=== PATIENT | female | born 1955 | race Caucasian/White ===

== ENCOUNTER → 2017-10-04 | Outpatient (CLI) | payer MEDICARE ==
--- NOTE | 2017-10-04 13:49 | Diagnostic Imaging Report ---
PROCEDURE: CT CHEST WITHOUT CONTRAST CT scan of the chest WITHOUT intravenous contrast, using standard protocol. TECHNIQUE: The chest was scanned utilizing a multidetector helical scanner from the apex to the level of the adrenal glands. No IV contrast was administered. Coronal and sagittal multiplanar reformations were obtained. COMPARISON: None. INDICATIONS: SMOKER FINDINGS: Lines/tubes: None. Lungs and Airways: There are multiple scattered lung nodules which measure up to 6 mm. For example: 3 mm nodule in the right upper lobe (series 3, image 33). 3 mm nodule right upper lobe (image 46 is present. 4 mm nodule in the right upper lobe (image 66). 6 mm nodule in the right lower lobe (image 72). 4 mm nodule right lower lobe (image 83). 4 mm right lower lobe nodule (image 91). 5 mm nodular opacity in the lingula (image 94) Right basilar atelectasis. Scarlike opacities in the lingula. No focal consolidation. Pleura: The pleural spaces are clear. Heart and mediastinum: The thyroid gland is normal. No significant mediastinal, hilar or axillary lymphadenopathy is seen. The heart size is normal. No pericardial effusion. Atherosclerotic calcifications of the coronary arteries and thoracic aorta. Soft tissues: Normal. Abdomen: Limited views of the upper abdomen. There has been a cholecystectomy. There is a 2.4 cm low attenuation right adrenal nodule (series 2, image 120) which is consistent with a benign adenoma. Bones: Multilevel degenerative changes of the thoracic spine. IMPRESSION: 1. Multiple pulmonary nodules which measure up to 6 mm and are indeterminate. Recommend followup CT in 6-12 months to ensure stability. 2. 2.4 cm benign right adrenal adenoma. Dictated by: Erick Alves M.D. on 10/04/2017 at 13:55 Electronically approved by: Erick Alves M.D. on 10/04/2017 at 13:55
== END ==
LOC: MAMMO 11:55
PROVIDERS: ATTEND Internal Medicine
DX: Z12.31 Encounter for screening mammogram for malignant neoplasm of breast (principal); Z12.2 Encounter for screening for malignant neoplasm of respiratory organs; F17.210 Nicotine dependence, cigarettes, uncomplicated
CPT/HCPCS: 71250; 77067

== ENCOUNTER → 2017-12-08 | Outpatient (CLI) | payer MEDICARE ==
[~2017-12-08] MED LIST: IOPAMIDOL 370 MG/ML 200 ML INFUS..BTL INJ ONE; SODIUM CHLORIDE 0.9% 100 ML 100 ML ONE; SODIUM CHLORIDE 0.9% 250ML 500 ML ONE
[2017-12-08 15:58] LABS: CREATININE, SERUM 1.15 mg/dL (0.57-1.11)
--- NOTE | 2017-12-08 17:34 | Diagnostic Imaging Report ---
History: Carotid stenosis Comparison studies:None Technique: Axial images were obtained from the thoracic inlet. Coronal and sagittal images reconstructed from the axial data. Dose modulation, iterative reconstruction, and/or weight based adjustment of the mA/kV was utilized to reduce the radiation dose to as low as reasonably achievable. Intravenous contrast: 100 cc of Omnipaque 300. Findings: Aortic arch and major vessels: Scattered non-stenosing calcifications in the aortic arch and at the origins of the left subclavian and brachiocephalic arteries. Common carotid arteries: Patent. No abnormalities. Internal carotid arteries: Calcified plaques bilaterally result in less than 30% stenosis. Internal carotid arteries: The cervical segments are patent. The distal segment on the right is focally tortuous before the artery enters the skull base. Moderate stenosis in the carotid siphons is due to coarse calcified plaques. Mildly stenosing calcified and noncalcified plaques are seen on the left. A1 and M1 segments: Minimally irregular but patent. Right vertebral artery: Tortuous, dominant and patent Left vertebral artery: Nonvisualized from its origin to the C4 level. It is small and irregular up to C3-4 but relatively patent from C3 to its junction with the basilar artery. Basilar artery: Patent. Posterior cerebral arteries: Patent bilaterally. Incidental findings: Focal reversal of the usual cervical spine lordosis is centered at C5. Degenerated discs, worse at C5-6 and C6-7. Diffuse inflammatory changes in the sphenoid sinuses and in multiple right mid and posterior ethmoid air cells. Peripheral mucosal thickening in the left sphenoid sinus. IMPRESSION: 1. 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 It is irregular at C3-4 but otherwise patent throughout its course. The nondominant right vertebral artery is patent. 2. Mild (less than 30%) stenosis of both carotid bulbs due to calcified plaques. Additional plaques in the carotid siphons result in moderate stenosis on the right but no significant stenosis on the left. 3. No additional significant vascular abnormalities. Signed by: Dr. David Browning M.D. on 12/08/2017 5:31 PM
== END ==
LOC: CT 15:03
PROVIDERS: ATTEND Internal Medicine Interventional Cardiology
DX: I65.29 Occlusion and stenosis of unspecified carotid artery (principal)
CPT/HCPCS: 36415; 70498; 82565; 84520; 96360; J7050; Q9967

== ENCOUNTER → 2018-02-22 | Outpatient (CLI) | payer MEDICARE ==
--- NOTE | 2018-02-22 17:10 | Diagnostic Imaging Report ---
EXAM: CT Chest without contrast DATE/TIME: 02/22/2018 2:00 PM INDICATION: Multiple lung nodules. COMPARISON: None TECHNIQUE: Chest was scanned utilizing a multidetector helical scanner from the lung apex through the level of the adrenal glands without administration of IV contrast. Coronal and sagittal reformations were obtained. Routine protocol was performed. Dose modulation, iterative reconstruction, and/or weight based adjustment of the mA/kV was utilized to reduce the radiation dose to as low as reasonably achievable. RADIATION DOSE: Total DLP: 179.5 mGy*cm COMPLICATIONS: None FINDINGS: LINES/ TUBES: None. LUNGS AND AIRWAYS: The central airways are patent. There are multiple bilateral lung nodules. The largest solid nodule in the right lower lobe measures 5 mm on series 3, image 57. Additional 4 mm solid nodule in the right lower lobe on image 76 and right upper lobe on image 52. Scattered other 2-3 mm solid nodules in both lungs. Mild patchy right lower lobe dependent subsegmental atelectasis. No evidence of consolidation or pulmonary edema. PLEURA: The pleural spaces are clear. HEART AND MEDIASTINUM: No mediastinal, hilar or axillary lymphadenopathy. No cardiomegaly or pericardial effusion. Moderate atherosclerotic calcifications of the thoracic aorta and branch vessels. UPPER ABDOMEN: Limited non-contrast views of the upper abdomen show no abnormality within the partially visualized liver, spleen, or kidneys. Status post cholecystectomy. Partially seen right adrenal nodule (4 HU), consistent with adrenal adenoma. BONES/SOFT TISSUES: No acute bony findings. Mild degenerative changes of the visualized spine. IMPRESSION: Bilateral solid pulmonary nodules which measure up to 4 mm. In a patient at low risk for malignancy, no further follow-up is recommended. If the patient has risk factor for malignancy, such as smoking, an optional follow-up chest CT in 12 months may be considered. Signed by: Dr. Kmei Rizo MD on 02/22/2018 5:07 PM
== END ==
LOC: CT 14:28
PROVIDERS: ATTEND Internal Medicine Pulmonary Disease
DX: R91.8 Other nonspecific abnormal finding of lung field (principal)
CPT/HCPCS: 71250

== ENCOUNTER 2018-04-23 16:34 | Emergency (ER) | payer MEDICARE ==
[~2018-04-23] VITALS: Ht 152.4 cm; Wt 76.7 kg
--- OUTSIDE RECORDS SUMMARY | 2018-04-23 16:37 | XMS REPORT ---
Author Author [facility] Address Unknown Phone Unavailable Care Team Providers Care Dispatch Officer Name Role Phone DAVID ZHOU Unavailable Unavailable HENNA CUENCA Unavailable Unavailable CARLONAZ LEVI Unavailable Unavailable Problems This patient has no known problems. Allergies, Adverse Reactions, Alerts This patient has no known allergies or adverse reactions. Medications This patient has no known medications. Results Test Description Test Time Test Comments Text Results Atomic Results Result Comments CT CHEST WO 2018-02-22 16:53:00 [place] [address] Patient Name: DAY RAY MR #: [id number] : 1955 Age/Sex: 62/F Req #: [id number] Adm Physician: Ordered by: DAVID ZHOU MD Report #: [id number] Location: CT Room/Bed: Procedure: [id number] CT/CT CHEST WO Exam Date: 02/22/18 Exam Time: 1500 REPORT STATUS: Signed EXAM: CT Chest without contrast DATE/TIME: 02/22/2018 2:00 PM INDICATION: Multiple lung nodules. COMPARISON: None TECHNIQUE: Chest was scanned utilizing a multidetector helical scanner from the lung apex through the level of the adrenal glands without administration of IV contrast. Coronal and sagittal reformations were obtained. Routine protocol was performed. Dose modulation, iterative reconstruction, and/or weight based adjustment of the mA/kV was utilized to reduce the radiation dose to as low as reasonably achievable. RADIATION DOSE: Total DLP: 179.5 mGy*cm COMPLICATIONS: None FINDINGS: LINES/ TUBES: None. LUNGS AND AIRWAYS: The central airways are patent. There are multiple bilateral lung nodules. The largest solid nodule in the right lower lobe measures 5 mm on series 3, image 57. Additional 4 mm solid nodule in the right lower lobe on image 76 and right upper lobe on image 52. Scattered other 2-3 mm solid nodules in both lungs. Mild patchy right lower lobe dependent subsegmental atelectasis. No evidence of consolidation or pulmonary edema. PLEURA: The pleural spaces are clear. HEART AND MEDIASTINUM: No mediastinal, hilar or axillary lymphadenopathy. No cardiomegaly or pericardial effusion. Moderate atherosclerotic calcifications of the thoracic aorta and branch vessels. UPPER ABDOMEN: Limited non-contrast views of the upper abdomen show no abnormality within the partially visualized liver, spleen, or kidneys. Status post cholecystectomy. Partially seen right adrenal nodule (4 HU), consistent with adrenal adenoma. BONES/SOFT TISSUES: No acute bony findings. Mild degenerative changes of the visualized spine. IMPRESSION: Bilateral solid pulmonary nodules which measure up to 4 mm. In a patient at low risk for malignancy, no further follow-up is recommended. If the patient has risk factor for malignancy, such as smoking, an optional follow-up chest CT in 12 months may be considered. Signed by: Dr. Kalpana Martell MD on 02/22/2018 5:07 PM Dictated By: KALPANA MARTELL MD 06 Transcribed By: BJ on 02/22/181706 COPY TO: DAVID ZHOU MD CTA NECK 2017-12-08 17:17:00 [place] [address] Patient Name: DAY RAY MR #: [id number] : 1955 Age/Sex: 62/F Req #: [id number] Adm Physician: Ordered by: HENNA CUENCA MD Report #: [id number] Location: CT Room/Bed: Procedure: [id number] CT/CTA NECK Exam Date: Exam Time: REPORT STATUS: Signed History: Carotid stenosis Comparison studies:None Technique: Axial i mages were obtained from the thoracic inlet. Coronal and sagittal images reconstructed from the axial data. Dose modulation, iterative reconstruction, and/or weight based adjustment of the mA/kV was utilized to reduce the radiation dose to as low as reasonably achievable. Intravenous contrast: 100 cc of Omnipaque 300. Findings: Aortic arch and major vessels: Scattered non-stenosing calcifications in the aortic arch and at the origins of the left subclavian and brachiocephalic arteries. Common carotid arteries: Patent. No abnormalities. Internal carotid arteries: Calcified plaques bilaterally result in less than 30% stenosis. Internal carotid arteries: The cervical segments are patent. The distal segment on the right is focally tortuous before the artery enters the skull base. Moderate stenosis in the carotid siphons is due to coarse calcified plaques. Mildly stenosing calcified and noncalcified plaques are seen on the left. A1 and M1 segments: Minimally irregular but patent. Right vertebral artery: Tortuous, dominant and patent Left vertebral artery: Nonvisualized from its origin to the C4 level. It is small and irregular up to C3-4 but relatively patent from C3 to its junction with the basilar artery. Basilar artery: Patent. Posterior cerebral arteries: Patent bilaterally. Incidental findings: Focal reversal of the usual cervical spine lordosis is centered at C5. Degenerated discs, worse at C5-6 and C6-7. Diffuse inflammatory changes in the sphenoid sinuses and in multiple right mid and posterior ethmoid air cells. Peripheral mucosal thickening in the left sphenoid sinus. IMPRESSION: 1. 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 It is irregular at C3-4 but otherwise patent throughout its course. The nondominant right vertebral artery is patent. 2. Mild (less than 30%) stenosis of both carotid bulbs due to calcified plaques. Additional plaques in the carotid siphons result in moderate stenosis on the right but no significant stenosis on the left. 3. No additional significant vascular abnormalities. Signed by: Dr. David Browning M.D. on 12/08/2017 5:31 PM Dictated By: DAVID PATEL MD, MD 30 Transcribed By: BJ on 12/08/171730 COPY TO: HENNA CUENCA MD CT CHEST WO 2017-10-04 13:55:00 [place] [address] Patient Name: DAY RAY MR #: [id number] : 1955 Age/Sex: 61/F Req #: [id number] Adm Physician: Ordered by: NAZ MATOS MD Report #: [id number] Location: [facility] Room/Bed: Procedure: [id number] CT/CT CHEST WO Exam Date: 10/04/17 Exam Time: 1240 REPORT STATUS: Signed PROCEDURE: CT CHEST WITHOUT CONTRAST CT scan of the chest WITHOUT intravenous contrast, using standard protocol. TECHNIQUE: The chest was scanned utilizing a multidetector helical scanner from the apex to the level of the adrenal glands. No IV contrast was administered. Coronal and sagittal multiplanar reformations were obtained. COMPARISON: None. INDICATIONS: SMOKER FINDINGS: Lines/tubes: None. Lungs and Airways: There are multiple scattered lung nodules which measure up to 6 mm. For example: 3 mm nodule in the right upper lobe (series 3, image 33). 3 mm nodule right upper lobe (image 46 is present. 4 mm nodule in the right upper lobe (image 66). 6 mm nodule in the right lower lobe (image 72). 4 mm nodule right lower lobe (image 83). 4 mm right lower lobe nodule (image 91). 5 mm nodular opacity in the lingula (image 94) Right basilar atelectasis. Scarlike opacities in the lingula. No focal consolidation. Pleura: The pleural spaces are clear. Heart and mediastinum: The thyroid gland is normal. No significant mediastinal, hilar or axillary lymphadenopathy is seen. The heart size is normal. No pericardial effusion. Atherosclerotic calc ifications of the coronary arteries and thoracic aorta. Soft tissues: Normal. Abdomen: Limited views of the upper abdomen. There has been a cholecystectomy. There is a 2.4 cm low attenuation right adrenal nodule (series 2, image 120) which is consistent with a benign adenoma. Bones: Multilevel degenerative changes of the thoracic spine. IMPRESSION: 1. Multiple pulmonary nodules which measure up to 6 mm and are indeterminate. Recommend followup CT in 6-12 months to ensure stability. 2. 2.4 cm benign right adrenal adenoma. Dictated by: Erick Alves M.D. on 10/04/2017 at 13:55 Electronically approved by: Erick Alves M.D. on 10/04/2017 at 13:55 Dictated By: ERICK ALVES MD 1355 Transcribed By: JS on 10/04/17 1355 COPY TO: NAZ MATOS MD MAMMOGRAPHY DIGITAL SCR BILAT 2017-10-04 12:59:00 [place] [address] Patient Name: DAY RAY MR #: [id number] : 1955 Age/Sex: 61/F Req #: [id number] Adm Physician: Ordered by: NAZ MATOS MD Report #: [id number] [facility] Room[facility]Bed: Procedure: [id number] MG/MAMMOGRAPHY DIGITAL SCR BILAT Exam Date: 10/04/17 Exam Time: 1233 REPORT STATUS: Signed #[id number] - MGSCRBIL #BILATERAL DIGITAL SCREENING MAMMOGRAM WITH CAD: 10/04/2017 CLINICAL: Routine screening. No prior exams were available for comparison. Current study contains 6 films. The tissue of both breasts is predominantly fatty. Current study was also evaluated with a Computer Aided Detection (CAD) system. There are benign calcifications in both breasts. There also are benign intramammary nodes in the left breast. There is a mole marker on the left breast. No significant masses, calcifications, or other findings are seen in either breast. IMPRESSION: BENIGN There is no mammographic evidence of malignancy. A 1 year screening mammogram is recommended. The patient will be notified by letter of the results. Danette rucker/clare:10/09/2017 13:20:05 Check Clerk: Justyna BROCK(R)(M), [facility] letter sent: Normal Exam Mammogram BI-RADS: 2 Benign Dictated By: DANETTE GOODMAN DO 1320 Transcribed By: CLARE on 10/09/17 1320 COPY TO: NAZ MATOS MD
[2018-04-23] MEDS ORDERED: ASPIR-LOW81 MG (17:22)
[2018-04-23] MEDS ORDERED: PREVASTATIN (17:22)
[2018-04-23] MEDS ORDERED: [UNRECOGNIZED DRUG - OTHER] (17:22)
[2018-04-23] MEDS ORDERED: GABAPENTIN300 MG PO (17:22)
[2018-04-23] MEDS ORDERED: BUSPIRONE HCL5 MG PO (17:22)
[2018-04-23] MEDS ORDERED: METOPROLOL SUCC25 MG (17:22)
[2018-04-23] MEDS ORDERED: LOSARTAN POTASS25 MG PO (17:22)
--- NOTE | 2018-04-23 17:23 | NUR ---
30 MIN ETA OF ULTRASOUND
--- NOTE | 2018-04-23 17:34 | NUR ---
GIVEN GOWN, WARM BLANKETS. UPDATED PLAN OF CARE.
--- NOTE | 2018-04-23 18:14 | NUR ---
SUGAR SAMPLER HERE TO SEE PT AND TEST
--- NOTE | 2018-04-23 19:20 | Diagnostic Imaging Report ---
EXAM: Unilateral Lower Extremity Venous Duplex Ultrasound INDICATION: Right leg pain and swelling for approximately 2 days COMPARISON: None TECHNIQUE: Vinson scale, color Doppler and spectral waveform analysis of the right lower extremity deep venous system was performed. FINDINGS: Common Femoral: Fully compressible with normal spontaneous waveforms. Proximal Greater Saphenous: Fully compressible. Femoral: Fully compressible with normal spontaneous waveforms. Normal response to augmentation. Proximal Deep Femoral: Normal spontaneous waveforms. Popliteal: Fully compressible with normal spontaneous waveforms. IMPRESSION: No evidence of deep venous thrombosis above the right calf. Signed by: Dr. Doris Richard MD on 04/23/2018 7:17 PM
== END 2018-04-23 19:43 | disposition home or self-care (01) ==
LOC: FSED 16:34
DX: M25.551 Pain in right hip (principal); M79.651 Pain in right thigh; I10 Essential (primary) hypertension; J44.9 Chronic obstructive pulmonary disease, unspecified; Z86.718 Personal history of other venous thrombosis and embolism
CPT/HCPCS: 93971; 99283

== ENCOUNTER → 2018-05-31 | Outpatient (CLI) | payer MEDICARE ==
[~2018-05-31] MED LIST changes: +ASPIR-LOW81 MG; +BUSPIRONE HCL5 MG PO; +GABAPENTIN300 MG PO; -IOPAMIDOL 370 MG/ML 200 ML INFUS..BTL INJ ONE; +LOSARTAN POTASS25 MG PO; +METOPROLOL SUCC25 MG; +PREVASTATIN; -SODIUM CHLORIDE 0.9% 100 ML 100 ML ONE; -SODIUM CHLORIDE 0.9% 250ML 500 ML ONE; +[UNRECOGNIZED DRUG - OTHER]
--- NOTE | 2018-05-31 17:29 | Diagnostic Imaging Report ---
EXAMINATION: CT scan of the chest without contrast. TECHNIQUE: Spiral CT images of the chest were performed from the lung apices to the level of the adrenal glands without IV or oral contrast material. Low dose pulmonary nodule technique was utilized to maintain the lowest dose possible to the patient. Coronal and sagittal reformatted images were obtained. DLP: 257.13 mGy-cm COMPARISON: 02/22/[address] CLINICAL HISTORY:Pulmonary nodules. DISCUSSION: LINES/TUBES: None. LUNGS AND AIRWAYS: The central airways are patent. The largest pulmonary nodule identified on the prior study in the right lower lobe measuring 5 mm now measures 5.7 mm. Close follow-up in 4 months is recommended. This nodule has a slightly spiculated border. Due to the small size of this transthoracic biopsy is not visible. Follow-up in 4 months is suggested. The right middle lobe nodule appears unchanged measuring 3.6 mm. The remainder of the other nodules appear unchanged. No masses or consolidation. The airways are normal, without endobronchial lesions. PLEURA: No pneumothorax or pleural effusions. HEART AND MEDIASTINUM: The thyroid gland is normal. The heart and pericardium are within normal limits. Left posterior diaphragmatic fat herniation. LYMPH NODES: There is no mediastinal, hilar or axillary lymphadenopathy. ABDOMEN: Limited contrast-enhanced views of the upper abdomen show no abnormality within the visualized liver, spleen, pancreas, or kidneys. Again identified is the low density right adrenal nodule. BONES AND SOFT TISSUES: No acute bony abnormalities. IMPRESSION: 1. There is slight enlargement in the right lower lobe pulmonary nodule with suggestion of a spiculated margin. 2. This nodule is suspicious where the remainder of the previously described pulmonary nodules are not significantly changed. 3. Follow-up study in 4 months is recommended. Signed by: Dr. Trace Baron DO on 05/31/2018 5:26 PM
== END ==
LOC: CT 14:22
PROVIDERS: ATTEND Internal Medicine Pulmonary Disease
DX: R91.8 Other nonspecific abnormal finding of lung field (principal)
CPT/HCPCS: 71250

== ENCOUNTER → 2018-10-23 | Outpatient (CLI) | payer MEDICARE ==
--- NOTE | 2018-10-23 13:48 | Diagnostic Imaging Report ---
Examination: CT BRAIN WO CONTRAST History: Forgetful. Comparison studies:None Technique: Axial images were obtained from the skull base to the vertex. Coronal and sagittal images reconstructed from the axial data. Dose modulation, iterative reconstruction, and/or weight based adjustment of the mA/kV was utilized to reduce the radiation dose to as low as reasonably achievable. Intravenous contrast: None Findings: Scalp: No abnormalities. Bones: No fractures, blastic or lytic lesions. Brain sulci: Appropriate for age. Ventricles: Normal in size and configuration. No hydrocephalus. Extra-axial space: No abnormalities. Parenchyma: No masses, hemorrhage, or acute or chronic cortical based vascular insults.. Sellar/suprasellar region: No abnormalities. Craniocervical junction: Patent foramen magnum. No Chiari one malformation. Incidental findings: Opacified and hyperdense right sphenoid sinus and right sphenoethmoidal recess. Impression: No acute intracranial abnormalities. Signed by: Dr. Kristen Novak M.D. on 10/23/2018 1:44 PM
--- NOTE | 2018-10-31 09:14 | Diagnostic Imaging Report ---
#[id number] - MGSCRBIL #BILATERAL DIGITAL SCREENING MAMMOGRAM WITH CAD: 10/23/2018 CLINICAL: Routine screening. Comparison is made to exam dated: 10/04/2017 mammogram - [facility]. Current study contains 5 films. The tissue of both breasts is predominantly fatty. Current study was also evaluated with a Computer Aided Detection (CAD) system. Benign appearing calcifications are noted bilaterally. There are benign nodes in both breasts. No significant masses, calcifications, or other findings are seen in either breast. IMPRESSION: BENIGN There is no mammographic evidence of malignancy. A 1 year screening mammogram is recommended. The patient will be notified by letter of the results. CHINMAY HUFFMAN M.D. ct/penrad:10/30/2018 17:01:26 [employer] Associate: Justyna BROCK(Amirah)(Crow), [facility] letter sent: Normal Exam Mammogram BI-RADS: 2 Benign
== END ==
LOC: CT 12:58
PROVIDERS: ATTEND Internal Medicine
DX: Z12.31 Encounter for screening mammogram for malignant neoplasm of breast (principal); R41.3 Other amnesia; G30.9 Alzheimer's disease, unspecified; F02.80 Dementia in other diseases classified elsewhere, unspecified severity, without behavioral disturbance, psychotic disturbance, mood disturbance, and anxiety
CPT/HCPCS: 70450; 77067

== ENCOUNTER → 2019-11-27 | Outpatient (CLI) | payer MEDICARE | LOC: MAMMO 12:03 | PROVIDERS: ATTEND Internal Medicine | DX: Z12.31 Encounter for screening mammogram for malignant neoplasm of breast (principal) | CPT/HCPCS: 77067 ==